=== PATIENT | female | born 1950 | race Caucasian/White ===

== ENCOUNTER 2019-10-05 10:56 | Emergency (ER) | payer MEDICARE ==
[~2019-10-05] VITALS: Ht 165.1 cm; Wt 88.5 kg
[~2019-10-05 10:56] MED LIST: AMLO5 PO; ASPI81CH PO; ATOR40TA PO; CLOP75 PO; DIPATR PO; INSULANPEN SC; METF500 PO; PROM25 PO; SIMV10 PO; ZESTORETIC 20-121 EA PO
[2019-10-05] MEDS ORDERED: IBUP600 PO (12:15)
[2019-10-05] MEDS ORDERED: ATORVASTATIN (12:17)
[2019-10-05] MEDS ORDERED: PLAVIX75 MG PO (12:17)
[2019-10-05] MEDS ORDERED: METFORMIN HCL500 M2 (12:17)
[2019-10-05] MEDS ORDERED: AMLODIPINE BESYL5 MG PO (12:17)
[2019-10-05] MEDS ORDERED: LATA.005SO (12:17)
== END 2019-10-05 12:28 | disposition home or self-care (01) ==
LOC: ER 10:56
DX: M70.71 Other bursitis of hip, right hip (principal); E11.9 Type 2 diabetes mellitus without complications; I10 Essential (primary) hypertension; E78.5 Hyperlipidemia, unspecified; E78.00 Pure hypercholesterolemia, unspecified
CPT/HCPCS: 96372; 99283-25; J1885

== ENCOUNTER 2020-11-04 03:00 | Observation (INO) | payer OTHER ==
[~2020-11-04] VITALS: Ht 165.1 cm; Wt 97.6 kg
[~2020-11-04 03:00] MED LIST changes: +AMLODIPINE BESYL5 MG PO; +ATORVASTATIN CA40 MG PO; +IBUP600 PO; +LATA.005SO BOTHEYES; +METFORMIN HCL500 M2; +PLAVIX75 MG PO
[2020-11-04 03:15] LABS: BASOPHILS ABSOLUTE AUTO 0.06 K/mm3 (0.00-0.23); BASOPHILS PERCENT AUTO 1 % (0-2); EOSINOPHILS ABSOLUTE AUTO 0.22 K/mm3 (0.00-0.68); EOSINOPHILS PERCENT AUTO 2 % (0-6); Hematocrit 40.3 % (33.0-51.0); Hemoglobin 12.9 g/dL (11.5-16.0); IMMATURE GRAN ABSOLUTE AUTO 0.06 K/mm3 (0.00-0.10); IMMATURE GRAN PERCENT AUTO 1 % (0-1); LYMPHOCYTES ABSOLUTE AUTO 1.82 K/mm3 (0.84-5.20); LYMPHOCYTES PERCENT AUTO 18 % (21-46); MONOCYTES ABSOLUTE AUTO 1.02 K/mm3 (0.16-1.47); MONOCYTES PERCENT AUTO 10 % (4-13); Mean Corpuscular HGB 30.4 pg (26.0-34.0); Mean Corpuscular Volume 95 fL (80-100); Mean Platelet Volume 10.1 fL (9.1-12.4); NEUTROPHILS ABSOLUTE AUTO 7.08 K/mm3 (1.96-9.15); NEUTROPHILS PERCENT AUTO 69 % (41-73); Platelet Count 242 K/mm3 (150-400); RDW Coefficient Variation 13.6 % (11.7-14.2); Red Blood Cell Count 4.25 M/mm3 (3.80-5.20); White Blood Cell Count 10.26 K/mm3 (4.00-11.30)
[2020-11-04 03:34] LABS: Troponin I <0.015 ng/mL (0.000-0.040)
[2020-11-04 03:54] LABS: Alanine Aminotransfer (ALT/SGP 22 U/L (12-78); Albumin, Blood 3.3 g/dL (3.4-5.0); Albumin/Globulin Ratio 0.9 (0.8-1.8); Alk Phos 95 U/L (50-136); Anion Gap 4 mmol/L (6-16); Aspartate Aminotrans (AST/SGOT 16 U/L (12-37); Bilirubin, Total 0.8 mg/dL (0.1-1.0); Blood Urea Nitrogen 20 mg/dL (8-24); Bun/Creatinine Ratio 22.9 (12.0-20.0); CO2, Blood 32 mmol/L (21-32); Calcium, Blood 9.1 mg/dL (8.5-10.1); Chloride, Blood 106 mmol/L (98-108); Creatinine, Blood 0.87 mg/dL (0.40-1.00); Globulin, Blood 3.5 g/dL (2.2-4.0); Glomerular Filtration Rate >60 (60-); Glucose, Blood 45 mg/dL (70-99); Potassium, Blood 3.7 mmol/L (3.5-5.5); Sodium, Blood 142 mmol/L (136-145); Total Protein, Blood 6.8 g/dL (6.4-8.2)
[2020-11-04 03:56] LABS: Source, Urine Clean Catch
[2020-11-04 03:59] LABS: Bilirubin, Urine Neg (Neg); Blood, Urine 1+ (Neg); Glucose Qualitative, Urine Neg (Neg); Ketones, Urine Neg (Neg); Leukocyte Esterase, Urine 2+ (Neg); Nitrite, Urine Neg (Neg); Protein, Urine 2+ (Neg); Urobilinogen, Urine NORM (Normal); pH, Urine 6.5 (5.0-8.0)
[2020-11-04 04:04] LABS: Appearance, Urine Clear (Clear); Color, Urine Yellow (P-Yellow)
[2020-11-04 04:11] LABS: Bacteria Rare /hpf; Squamous Epithelial Cells Few /hpf (Few)
[2020-11-04] MEDS ORDERED: SEMGLEE100 UNIT/1 (04:19)
[2020-11-04] MEDS ORDERED: LISINOPRIL-HCT1 EACH PO (04:20)
--- NOTE | 2020-11-04 07:30 | NUR ---
PT is awake and oriented x 4. BP was slightly elevated this morning and the pt reports that this is normal for her. She is able to answer questions appropriately. During assessment pt stated that she was going to be sick and did infact have emesis x 1. Her CBG was checked and was 81. Pt reports that she is usually in the 150's. Apple juice was given. She now reports feeling better. She is restng in bed with call light in reach.
--- NOTE | 2020-11-04 14:44 | NUR ---
Pt has been a/o x 3 today with no c/o pain. Her CBGs have been WNL and she has been asymptomatic of hypoglycemia. Pt reported to this nurse that she does not consistently check her blood sugars at home. diabetic education was completed by this nurse at the bedside. IV fluids have been infusing as ordered and IVs are patent. Pt does have some urinary urgency and has been a x 1 assit to the bedside commode. Pt worked with therapy this morning. Urine is malodorous and she has a UA culture pending. was notified of Pt current status and made aware of her transfer to Med floor. Report was called to receiving nurse on medical floor all personal belongings were packed. BIODIESEL TECHNOLOGY MANAGER to assist Pt to the floor. Pt stable upon transfer.
--- NOTE | 2020-11-04 17:14 | NUR ---
PT QUITE SHAKEY GETTING TO BSC. 1 ASST. CHECK CBG, OKAY AT 101. PT STATES FEELS FINE, JUST SOME WEAK
--- NOTE | 2020-11-04 18:25 | NUR ---
PT PLEASANT COOP SINCE TRANSFER TO FLOOR. NO C.O PAIN. IS UNSTABLE TO BSC. CONTINUES TO BE 1 ASST. VSS AND CGB WNL. PT TALKATIVE AND WATCHING [place] [employer] ON TV. CONTINUE TO MONITOR THROUGH SHIFT. NO NEW CONCERNS AT THIS TIME. BED IN LOW POSITION, CALL LITE IN REACH, BED [place] FOR SAFETY. IS IMPULSIVE
[2020-11-04] MEDS ORDERED: NOVOLIN N100 UNIT/2 SC (22:37)
[2020-11-04] MEDS ORDERED: BASAGLAR K100 UNIT/1 SC (22:39)
[2020-11-04] MEDS ORDERED: BRIMONIDINE TART5 M1 BOTHEYES (22:40)
--- NOTE | 2020-11-05 01:16 | NUR ---
BLOOD GLUCOSE CHECKS: LATE ENTRY FOR 11/04/202015 - BLOOD GLOCOSE WAS 148, VALUES HAVE NOT CROSSED OVER INTO PEAK-IT. MAKING LINE WORKER VISUALLY VERIFIED RESULT IN REVIEW MODE ON GLUCOMETER MACHINE.
--- NOTE | 2020-11-05 07:56 | NUR ---
SHIFT SUMMARY: PATIENT IS IMPULSIVE AND JUMPS UP WITHOUT CALLING FOR ASSIST. A&OX4, NO REPORTS OF PAIN OR DISCOMFORT. HS BLOOD GLUCOE WAS 148, D5 10% IS INFUING AT 50ML/HR. BED ALARM IS ON FOR SAFETY.
[2020-11-05 08:12] LABS: BASOPHILS ABSOLUTE AUTO 0.06 K/mm3 (0.00-0.23); BASOPHILS PERCENT AUTO 1 % (0-2); EOSINOPHILS ABSOLUTE AUTO 0.25 K/mm3 (0.00-0.68); EOSINOPHILS PERCENT AUTO 3 % (0-6); Hemoglobin 13.3 g/dL (11.5-16.0); IMMATURE GRAN ABSOLUTE AUTO 0.01 K/mm3 (0.00-0.10); IMMATURE GRAN PERCENT AUTO 0 % (0-1); LYMPHOCYTES ABSOLUTE AUTO 1.73 K/mm3 (0.84-5.20); LYMPHOCYTES PERCENT AUTO 23 % (21-46); MONOCYTES ABSOLUTE AUTO 1.01 K/mm3 (0.16-1.47); MONOCYTES PERCENT AUTO 14 % (4-13); Mean Corpuscular HGB 30.6 pg (26.0-34.0); Mean Corpuscular HGB Conc 33.3 g/dL (31.5-36.5); Mean Corpuscular Volume 92 fL (80-100); Mean Platelet Volume 10.2 fL (9.1-12.4); NEUTROPHILS PERCENT AUTO 59 % (41-73); Platelet Count 191 K/mm3 (150-400); RDW Coefficient Variation 13.5 % (11.7-14.2); RDW Standard Deviation 45.9 fL (35.1-46.3); Red Blood Cell Count 4.35 M/mm3 (3.80-5.20); White Blood Cell Count 7.46 K/mm3 (4.00-11.30)
[2020-11-05 08:39] LABS: Albumin/Globulin Ratio 0.9 (0.8-1.8); Bilirubin, Total 1.6 mg/dL (0.1-1.0); Bun/Creatinine Ratio 16.3 (12.0-20.0); Calcium, Blood 8.9 mg/dL (8.5-10.1); Creatinine, Blood 0.98 mg/dL (0.40-1.00); Globulin, Blood 3.4 g/dL (2.2-4.0); Magnesium, Blood 1.6 mg/dL (1.6-2.4); Potassium, Blood 3.8 mmol/L (3.5-5.5); Thyroid Stimulating Hormone 3.97 uIU/mL (0.360-4.800); Total Protein, Blood 6.4 g/dL (6.4-8.2)
[2020-11-05] MEDS ORDERED: ACET325 PO (11:35)
[2020-11-05] MEDS ORDERED: ONDA4ODT MM (11:36)
--- NOTE | 2020-11-05 14:54 | NUR ---
PT WAS DISCHARGED ALERT AND ORIENTED, WITH BELONGINGS AND FAMILY AT SIDE. PT WAS EDUCATED ON SS TO LOOK OUT FOR WITH LOW BLOOD SUGARS, NEW MEDICATIONS AND FOLLLOW UP APPOINTMENTS NEEDED. PT WAS ABLE TO TEACH BACK. IV LINES WERE DC'S AND WNL.
== END 2020-11-05 14:24 | disposition home or self-care (01) ==
LOC: ER 03:00 → PCU 03:01 → MEDS 14:57 → ENPENDDIS 11-05 10:53 → MEDS 11-05 14:24
PROVIDERS: Emergency Medicine; Family Medicine; ADMIT Family Medicine
DX: E11.649 Type 2 diabetes mellitus with hypoglycemia without coma (principal); R56.9 Unspecified convulsions; R82.90 Unspecified abnormal findings in urine; E87.2 Acidosis; I10 Essential (primary) hypertension; E78.5 Hyperlipidemia, unspecified; Z79.4 Long term (current) use of insulin; Z79.899 Other long term (current) drug therapy
CPT/HCPCS: 36415; 70450; 71045; 72125; 80053; 81001; 82947; 83605; 83735; 84100; 84443; 84484; 85025; 87086; 93005; 93010; 96372; 96374; 96376; 97110; 97116; 97162; 97165; 97530; 97535; 99285-25; A9270; G0378; J1650; J2405

== ENCOUNTER → 2021-04-16 | Outpatient (CLI) | payer OTHER ==
[~2021-04-16] MED LIST changes: +ACET325 PO; +BASAGLAR K100 UNIT/1 SC; +BRIMONIDINE TART5 M1 BOTHEYES; +LISINOPRIL-HCT1 EACH PO; +NOVOLIN N100 UNIT/2 SC; +ONDA4ODT MM; +SEMGLEE100 UNIT/1
[2021-04-16 14:28] LABS: Bilirubin, Total 0.7 mg/dL (0.1-1.0); Bun/Creatinine Ratio 14.5 (12.0-20.0); Creatinine, Blood 1.1 mg/dL (0.40-1.00)
== END | disposition home or self-care (01) ==
LOC: LAB SHORT 10:40
PROVIDERS: Family Medicine
DX: E11.9 Type 2 diabetes mellitus without complications (principal)
CPT/HCPCS: 80053; 83036

== ENCOUNTER 2021-06-12 06:50 | Day surgery (SDC) | payer OTHER ==
[~2021-06-12] VITALS: Ht 162.6 cm; Wt 102.7 kg
--- NOTE | 2021-06-12 07:20 | NUR ---
History, Chart, Medications and Allergies reviewed before start of procedure. Patient States Post-Procedure ride home has been arranged. Patient states colon prep results clear.
--- NOTE | 2021-06-12 07:56 | NUR ---
06/12/21 0756 Roxy Deluca HISTORY,CHART, MEDICATIONS AND ALLERGIES REVIEWED BEFORE START OF PROCEDURE. PATIENT CONFIRMS NPO STATUS AND AGREES WITH SCHEDULED PROCEDURE. 3-LEAD EKG REVIEWED WITH PHYSICIAN PRIOR TO START OF PROCEDURE. MONITOR INTACT WITH CONTINUOUS PULSE OXIMETRY AND INTERMITTENT BP. SUPPLEMENTAL O2 TO BE TITRATED THROUGHOUT PROCEDURE TO MAINTAIN O2 SATURATION ABOVE 90%. PATIENT DETERMINED TO BE ASA APPROPRIATE FOR MODERATE SEDATION PRIOR TO START OF PROCEDURE BY .
--- NOTE | 2021-06-12 08:57 | NUR ---
Discharge instructions reviewed with patient. Patient verbalizes understanding. Copy given to patient to take home. Patient States Post-Procedure ride home has been arranged. Discharged via wheelchair to private car for ride home.
== END 2021-06-12 23:10 | disposition home or self-care (01) ==
LOC: ORSCMMR 06:50 → ORD 08:00 → ORSCMMR 23:10
PROVIDERS: Internal Medicine Gastroenterology
PROC: 0DJD8ZZ Inspection of Lower Intestinal Tract, Via Natural or Artificial Opening Endoscopic (ICD-10-PCS; principal; 2021-06-12 08:00)
DX: Z12.11 Encounter for screening for malignant neoplasm of colon (principal); Z86.010 Personal history of colon polyps; K57.30 Diverticulosis of large intestine without perforation or abscess without bleeding; E11.9 Type 2 diabetes mellitus without complications; I10 Essential (primary) hypertension; E78.00 Pure hypercholesterolemia, unspecified; Z79.4 Long term (current) use of insulin; Z79.82 Long term (current) use of aspirin; Z79.899 Other long term (current) drug therapy
CPT/HCPCS: 82947; J2250; J3010; J7120

== ENCOUNTER → 2021-07-29 | Outpatient (CLI) | payer OTHER | END | disposition home or self-care (01) | LOC: LAB SHORT 19:23 | DX: N39.0 Urinary tract infection, site not specified (principal) | CPT/HCPCS: 87086 ==

== ENCOUNTER → 2021-10-14 | Outpatient (CLI) | payer OTHER ==
[2021-10-14 13:44] LABS: Hemoglobin 14.4 g/dL (11.5-16.0); Mean Corpuscular HGB 30.7 pg (26.0-34.0); Mean Corpuscular Volume 96 fL (80-100); Mean Platelet Volume 10.4 fL (9.1-12.4); Platelet Count 237 K/mm3 (150-400); RDW Coefficient Variation 14.2 % (11.7-14.2); RDW Standard Deviation 49.9 fL (35.1-46.3); Red Blood Cell Count 4.69 M/mm3 (3.80-5.20); White Blood Cell Count 7.71 K/mm3 (4.00-11.30)
[2021-10-14 15:12] LABS: Albumin, Blood 3.9 g/dL (3.4-5.0); Albumin/Globulin Ratio 1.1 (0.8-1.8); Bun/Creatinine Ratio 29.7 (12.0-20.0); Calcium, Blood 9.8 mg/dL (8.5-10.1); Creatinine, Blood 1.18 mg/dL (0.40-1.00); Globulin, Blood 3.6 g/dL (2.2-4.0); Total Protein, Blood 7.5 g/dL (6.4-8.2)
== END ==
LOC: LAB 10:20 → LAB SHORT 10:20
PROVIDERS: Family Medicine
DX: E11.9 Type 2 diabetes mellitus without complications (principal); I11.0 Hypertensive heart disease with heart failure; I50.9 Heart failure, unspecified; Z79.4 Long term (current) use of insulin
CPT/HCPCS: 80053; 83036; 83880; 85027

== ENCOUNTER → 2021-11-27 | Outpatient (CLI) | payer OTHER | END | disposition home or self-care (01) | LOC: LAB SHORT 10:40 → LAB 10:40 | DX: N39.0 Urinary tract infection, site not specified (principal) | CPT/HCPCS: 87086; 87147 ==

== ENCOUNTER → 2021-12-10 | Outpatient (CLI) | payer OTHER | END | disposition home or self-care (01) | LOC: LAB 12:39 → LAB SHORT 12:39 | DX: N39.0 Urinary tract infection, site not specified (principal) | CPT/HCPCS: 87086 ==

== ENCOUNTER → 2022-01-14 | Outpatient (CLI) | payer OTHER ==
[2022-01-14 12:10] LABS: BASOPHILS ABSOLUTE AUTO 0.05 K/mm3 (0.00-0.23); BASOPHILS PERCENT AUTO 1 % (0-2); EOSINOPHILS ABSOLUTE AUTO 0.11 K/mm3 (0.00-0.68); EOSINOPHILS PERCENT AUTO 2 % (0-6); Hematocrit 44.5 % (33.0-51.0); Hemoglobin 14.2 g/dL (11.5-16.0); IMMATURE GRAN ABSOLUTE AUTO 0.01 K/mm3 (0.00-0.10); IMMATURE GRAN PERCENT AUTO 0 % (0-1); LYMPHOCYTES ABSOLUTE AUTO 1.48 K/mm3 (0.84-5.20); LYMPHOCYTES PERCENT AUTO 23 % (21-46); MONOCYTES ABSOLUTE AUTO 0.74 K/mm3 (0.16-1.47); MONOCYTES PERCENT AUTO 11 % (4-13); Mean Corpuscular HGB 30.7 pg (26.0-34.0); Mean Corpuscular HGB Conc 31.9 g/dL (31.5-36.5); Mean Corpuscular Volume 96 fL (80-100); Mean Platelet Volume 10.4 fL (9.1-12.4); NEUTROPHILS ABSOLUTE AUTO 4.11 K/mm3 (1.96-9.15); NEUTROPHILS PERCENT AUTO 63 % (41-73); Platelet Count 205 K/mm3 (150-400); RDW Coefficient Variation 14.4 % (11.7-14.2); RDW Standard Deviation 51.2 fL (35.1-46.3); Red Blood Cell Count 4.62 M/mm3 (3.80-5.20)
[2022-01-14 12:34] LABS: Alanine Aminotransfer (ALT/SGP 21 U/L (12-78); Alk Phos 101 U/L (50-136); Anion Gap 9 mmol/L (6-16); Aspartate Aminotrans (AST/SGOT 32 U/L (12-37); Blood Urea Nitrogen 28 mg/dL (8-24); Bun/Creatinine Ratio 26.2 (12.0-20.0); CHOL/HDL RATIO 1.9; CO2, Blood 26 mmol/L (21-32); Calcium, Blood 9.9 mg/dL (8.5-10.1); Chloride, Blood 105 mmol/L (98-108); Cholesterol 157 mg/dL (50-200); Creatinine, Blood 1.07 mg/dL (0.40-1.00); Globulin, Blood 4.2 g/dL (2.2-4.0); Glomerular Filtration Rate 55 (60-); HDL Cholesterol 83 mg/dL (>39); LDL/HDL RATIO 0.8; Low Density Lipoprotein Chol 64 mg/dL (0-110); Potassium, Blood 4.4 mmol/L (3.5-5.5); Sodium, Blood 140 mmol/L (136-145); Total Protein, Blood 8.2 g/dL (6.4-8.2); Triglycerides 49 mg/dL (30-160); Very Low Density Lipoprot Chol 9 mg/dL (6-32)
[2022-01-14 13:55] LABS: Glucose, Blood 44 mg/dL (70-99)
== END | disposition home or self-care (01) ==
LOC: LAB 10:45 → LAB SHORT 10:45
PROVIDERS: Family Medicine
DX: E11.9 Type 2 diabetes mellitus without complications (principal); E78.2 Mixed hyperlipidemia; I50.9 Heart failure, unspecified
CPT/HCPCS: 80053; 80061; 83036; 83880; 85025

== ENCOUNTER → 2022-06-30 | Outpatient (CLI) | payer OTHER ==
[~2022-06-30] MED LIST changes: +FUROSEMIDE40 MG PO; +HUMULIN N100 UNIT/6 SC; +K-Dur10 MEQ PO
[2022-06-30 14:18] LABS: Albumin, Blood 3.8 g/dL (3.4-5.0); Bilirubin, Total 1.2 mg/dL (0.1-1.0); Bun/Creatinine Ratio 14.6 (12.0-20.0); Calcium, Blood 10.5 mg/dL (8.5-10.1); Creatinine, Blood 1.03 mg/dL (0.40-1.00); Globulin, Blood 3.8 g/dL (2.2-4.0); Potassium, Blood 3.6 mmol/L (3.5-5.5); Total Protein, Blood 7.6 g/dL (6.4-8.2)
== END | disposition home or self-care (01) ==
LOC: LAB 10:20 → LAB SHORT 10:20
PROVIDERS: Family Medicine
DX: E11.9 Type 2 diabetes mellitus without complications (principal)
CPT/HCPCS: 80053; 83036

== ENCOUNTER 2022-07-02 08:20 | Observation (INO) | payer OTHER ==
[~2022-07-02] VITALS: Ht 162.6 cm; Wt 89.5 kg
[~2022-07-02 08:20] MED LIST changes: -FUROSEMIDE40 MG PO; -HUMULIN N100 UNIT/6 SC; -K-Dur10 MEQ PO
[2022-07-02 08:43] LABS: BASOPHILS ABSOLUTE AUTO 0.04 K/mm3 (0.00-0.23); BASOPHILS PERCENT AUTO 0 % (0-2); EOSINOPHILS PERCENT AUTO 0 % (0-6); Hematocrit 44.6 % (33.0-51.0); Hemoglobin 15.6 g/dL (11.5-16.0); IMMATURE GRAN ABSOLUTE AUTO 0.04 K/mm3 (0.00-0.10); IMMATURE GRAN PERCENT AUTO 0 % (0-1); LYMPHOCYTES ABSOLUTE AUTO 0.69 K/mm3 (0.84-5.20); LYMPHOCYTES PERCENT AUTO 6 % (21-46); MONOCYTES ABSOLUTE AUTO 0.72 K/mm3 (0.16-1.47); MONOCYTES PERCENT AUTO 6 % (4-13); Mean Corpuscular HGB 31.8 pg (26.0-34.0); Mean Corpuscular Volume 91 fL (80-100); Mean Platelet Volume 11.5 fL (9.1-12.4); NEUTROPHILS ABSOLUTE AUTO 10.46 K/mm3 (1.96-9.15); NEUTROPHILS PERCENT AUTO 88 % (41-73); Platelet Count 191 K/mm3 (150-400); RDW Coefficient Variation 12.4 % (11.7-14.2); RDW Standard Deviation 41.1 fL (35.1-46.3); Red Blood Cell Count 4.91 M/mm3 (3.80-5.20); White Blood Cell Count 11.95 K/mm3 (4.00-11.30)
[2022-07-02 09:01] LABS: Albumin, Blood 3.6 g/dL (3.4-5.0); Bilirubin, Total 1.1 mg/dL (0.1-1.0); Bun/Creatinine Ratio 20.4 (12.0-20.0); Calcium, Blood 9.5 mg/dL (8.5-10.1); Creatinine, Blood 1.08 mg/dL (0.40-1.00); Globulin, Blood 3.5 g/dL (2.2-4.0); Potassium, Blood 3.8 mmol/L (3.5-5.5); Total Protein, Blood 7.1 g/dL (6.4-8.2)
[2022-07-02 09:12] LABS: Base Excess Venous 8.9 mmol/L; Bicarbonate Venous 29.9 mmol/L (24.0-30.0); PCO2 Venous 53.8 mmHg (38-42)
[2022-07-02 09:35] LABS: Source, Urine Clean Catch
[2022-07-02 09:39] LABS: Appearance, Urine Clear (Clear); Bilirubin, Urine Neg (Neg); Blood, Urine 3+ (Neg); Color, Urine Yellow (P-Yellow); Glucose Qualitative, Urine 4+ (Neg); Ketones, Urine Neg (Neg); Leukocyte Esterase, Urine Neg (Neg); Nitrite, Urine Neg (Neg); Protein, Urine 2+ (Neg); Specific Gravity, Urine 1.015 (1.003-1.022); Urobilinogen, Urine NORM (Normal)
[2022-07-02 09:49] LABS: White Blood Cells, Urine 0-2 /hpf (0-5)
[2022-07-02 09:50] LABS: Bacteria Rare /hpf; Squamous Epithelial Cells Rare /hpf (Few)
[2022-07-02 12:42] LABS: U Amphetamine Screen Not Detected; U Barbituate Screen Not Detected; U Benzodiazapine Screen Not Detected; U Buprenorphine Screen Not Detected; U Cannabinoids Screen Not Detected; U Cocaine Screen Not Detected; U Methadone Screen Not Detected; U Methamphetamine Screen Not Detected; U Opiates Screen Not Detected; U Oxycodone Screen Not Detected; U Phencyclidine Screen Not Detected; U Propoxyphene Screen Not Detected
--- NOTE | 2022-07-02 17:07 | NUR ---
ADMISSION NOTE: REPORT RECEIVED FROM TATYANA WATSON. PT ARRIVED TO ROOM 333 AT 1655 VIA GURNEY. PT IS AWAKE BUT MINIMALLY VERBALLY RESPONSIVE. ANSWERS HER NAME BUT DOES NOT RESPOND TO OTHER YES/NO QUESTIONS. SHE IS IN NO APPARENT RESPIRATORY DISTRESS. ON O2 AT 2 LPM VIA NC. PAINAD IS 0/10. NO OBVIOUS FACIAL DROOP, OR SLURRING OF WORDS. PT SKIN ASSESSMENT COMPLETED WITH ROLF WATSON AND NO WOUNDS, RASHES OR OTHER SKIN ISSUES FOUND. PT ORIENTED TO ROOM. CALL LIGHT IN REACH AND BED ALARM AND 3 RAILS SET. BED IN LOW POSITION. PT SPOUSE IS NOT PRESENT. UNABLE TO COMPLETE MEDICATION RECONCILIATION AT THIS TIME.
[2022-07-02] MEDS ORDERED: HUMULIN N100 UNIT/6 SC (22:39)
[2022-07-02] MEDS ORDERED: K-Dur10 MEQ PO (22:40)
[2022-07-02] MEDS ORDERED: FUROSEMIDE40 MG PO (22:40)
--- NOTE | 2022-07-03 05:05 | NUR ---
YARD WAREHOUSE WORKER SUMMARY PT HAS REMAINED LETHARGIC/SLEEPING T/O THE SHIFT. SHE WILL AWAKE TO ANSWER QUESTIONS. PT ABLE TO STATE NAME AND WHERE SHE IS AT. PT CAN NOT ANSWER MORE COMPLEX QUESTIONS LIKE TELLING ME WHY SHE IS HERE. PT ABLE TO RESPOND TO COMMANDS FOR NEURO CHECKS; STRENGTH EQUAL BILATERALLY IN HANDS/LEGS, BUT WEAK. CONT W/Q4 NEURO CHECKS AND Q6 BLOOD SUGAR T/O THE SHIFT. PT REMAINS NPO AWAITING SWALLOW EVAL. PT HAS NOT REQUESTED FOOD/DRINK. PT HAS PULLED BLANKETS/GOWN OFF BODY MULTIPLE TIMES DURING SHIFT. CALL LIGHT IN REACH. BED LOCKED/ALARM SET.
[2022-07-03 05:25] LABS: BASOPHILS ABSOLUTE AUTO 0.04 K/mm3 (0.00-0.23); BASOPHILS PERCENT AUTO 1 % (0-2); EOSINOPHILS ABSOLUTE AUTO 0.09 K/mm3 (0.00-0.68); EOSINOPHILS PERCENT AUTO 1 % (0-6); Hematocrit 41.1 % (33.0-51.0); Hemoglobin 14.1 g/dL (11.5-16.0); IMMATURE GRAN ABSOLUTE AUTO 0.01 K/mm3 (0.00-0.10); IMMATURE GRAN PERCENT AUTO 0 % (0-1); LYMPHOCYTES ABSOLUTE AUTO 1.98 K/mm3 (0.84-5.20); LYMPHOCYTES PERCENT AUTO 24 % (21-46); MONOCYTES ABSOLUTE AUTO 1.02 K/mm3 (0.16-1.47); MONOCYTES PERCENT AUTO 12 % (4-13); Mean Corpuscular HGB 30.9 pg (26.0-34.0); Mean Corpuscular HGB Conc 34.3 g/dL (31.5-36.5); Mean Corpuscular Volume 90 fL (80-100); Mean Platelet Volume 11.4 fL (9.1-12.4); NEUTROPHILS ABSOLUTE AUTO 5.09 K/mm3 (1.96-9.15); NEUTROPHILS PERCENT AUTO 62 % (41-73); Platelet Count 169 K/mm3 (150-400); RDW Coefficient Variation 12.7 % (11.7-14.2); RDW Standard Deviation 41.9 fL (35.1-46.3); Red Blood Cell Count 4.56 M/mm3 (3.80-5.20); White Blood Cell Count 8.23 K/mm3 (4.00-11.30)
[2022-07-03 05:51] LABS: Albumin, Blood 2.8 g/dL (3.4-5.0); Albumin/Globulin Ratio 0.9 (0.8-1.8); Bilirubin, Total 1.8 mg/dL (0.1-1.0); Bun/Creatinine Ratio 17.3 (12.0-20.0); Calcium, Blood 9.2 mg/dL (8.5-10.1); Creatinine, Blood 1.04 mg/dL (0.40-1.00); Globulin, Blood 3.1 g/dL (2.2-4.0); Magnesium, Blood 1.7 mg/dL (1.6-2.4); Potassium, Blood 3.2 mmol/L (3.5-5.5); Total Protein, Blood 5.9 g/dL (6.4-8.2)
--- NOTE | 2022-07-03 07:53 | NUR ---
TELESALES AGENT SUMMARY PT RETURNED FROM PACU APROX 1930; PT A/OX4. REPORT F/PACU VSS. WAS WITH PT. CONT W/BP CHECKS P/PROTOCOL. PT C/O MODERATE PAIN F/3-5; MED W/NORCO 5MG Q4 HOURS. BP GREW SOFTER T/O THE NIGHT; DROPPING TO 87/62; MAP 70. CONTACT DR--NEW ORDER FOR 500ML BOLUS; PT TOLERATED WELL. AFTER BOLUS BP 103/61. ABDOMEN TENDER; DRESSINGS CDI. PT ABLE TO MAKE NEEDS KNOWN. CALL LIGHT IN REACH.
--- NOTE | 2022-07-03 18:39 | NUR ---
SHIFT SUMMARY PATIENT DENIES PAIN AND SHORTNESS OF BREATH. PATIENT MEDICATED X1 FOR NAUSEA, PATIENT VOMITTED THIS AFTERNOON. PATIENT WORKED WITH PT AND OT. PATIENT IS A SBA WITH A FWW. PATIENT TITRATED TO ROOM AIR, SATURATING AT 95%. BEDSIDE SWALLOW EVAL DONE THIS MORNING BY THIS RN, PATIENT TOLERATED ALL TEXTURES WITHOUT SIGNS OF ASPIRATION, I.E., NO COUGHING OR THROAT CLEARING. PATIENT STARTED ON SOFT DIET DUE TO NOT HAVING DENTURES. MANZO PULLED THIS MORNING WITHOUT DIFFICULTY. PATIENT TOELRATED WELL. PATIENT URINTING WELL, BLADDER SCAN POST VOID 130MLS. PATIENT IS EATING AND DRINKING WELL. PATIENT VISITED THIS MORNING. PATIENT IS A&O X3, PATIENT HAS TROUBLE WITH COMPLEX THINKING. PATIENT IS VERY PLEASANT AND COOPERATIVE WITH CARE. PATIENT COMPLETED MRI TODAY, SEE RESULTS.
--- NOTE | 2022-07-04 04:57 | NUR ---
CONCRETE PUMP OPERATOR HELPER SUMMARY NO ACUTE CHANGES. PT REMAINS PLEASANT AND COOPERATIVE WITH CARE. DENIES ANY PAIN OR NAUSEA THIS SHIFT. PT CALLING APPROPRIATELY F/NEEDS. PT THOUGHT PROCESS STILL SEEMS A LITTLE CONFUSED. CALL LIGHT IN REACH. WILL CONT T/MONITOR.
[2022-07-04 05:54] LABS: BASOPHILS ABSOLUTE AUTO 0.06 K/mm3 (0.00-0.23); BASOPHILS PERCENT AUTO 1 % (0-2); EOSINOPHILS ABSOLUTE AUTO 0.25 K/mm3 (0.00-0.68); EOSINOPHILS PERCENT AUTO 3 % (0-6); Hematocrit 43.6 % (33.0-51.0); Hemoglobin 14.6 g/dL (11.5-16.0); IMMATURE GRAN ABSOLUTE AUTO 0.01 K/mm3 (0.00-0.10); IMMATURE GRAN PERCENT AUTO 0 % (0-1); LYMPHOCYTES ABSOLUTE AUTO 2.42 K/mm3 (0.84-5.20); LYMPHOCYTES PERCENT AUTO 30 % (21-46); MONOCYTES PERCENT AUTO 11 % (4-13); Mean Corpuscular HGB 30.6 pg (26.0-34.0); Mean Corpuscular HGB Conc 33.5 g/dL (31.5-36.5); Mean Corpuscular Volume 91 fL (80-100); Mean Platelet Volume 11.1 fL (9.1-12.4); NEUTROPHILS ABSOLUTE AUTO 4.42 K/mm3 (1.96-9.15); NEUTROPHILS PERCENT AUTO 55 % (41-73); Platelet Count 167 K/mm3 (150-400); RDW Coefficient Variation 12.6 % (11.7-14.2); RDW Standard Deviation 42.4 fL (35.1-46.3); Red Blood Cell Count 4.77 M/mm3 (3.80-5.20); White Blood Cell Count 8.06 K/mm3 (4.00-11.30)
[2022-07-04 06:37] LABS: Bun/Creatinine Ratio 18.2 (12.0-20.0); Calcium, Blood 9.2 mg/dL (8.5-10.1); Creatinine, Blood 1.1 mg/dL (0.40-1.00); Potassium, Blood 3.6 mmol/L (3.5-5.5)
--- NOTE | 2022-07-04 13:13 | NUR ---
DISCHARGE: PT DISCHARGED VIA HOSPITAL WHEELCHAIR WITH AND FRIEND. IV WAS D/C'D AND WAS WNL. WENT OVER PT INSTRUCTIONS INCLUDING HER MEDICATIONS, FOLLOW-UP WITH PCP, EDUCATION, AND SYMPTOMS TO COME BACK TO ER. PT AND STATED THEY UNDERSTOOD ALL INSTRUCTIONS. THANKFUL FOR CARE PROVIDED.
== END 2022-07-04 13:04 | disposition home or self-care (01) ==
LOC: ER 08:20 → MEDS 15:52
PROVIDERS: Physician Assistant; ADMIT Student in an Organized Health Care Education/Training Program
DX: R41.82 Altered mental status, unspecified (principal); Z86.73 Personal history of transient ischemic attack (TIA), and cerebral infarction without residual deficits; Z79.4 Long term (current) use of insulin; Z79.82 Long term (current) use of aspirin; F03.90 Unspecified dementia, unspecified severity, without behavioral disturbance, psychotic disturbance, mood disturbance, and anxiety; E11.22 Type 2 diabetes mellitus with diabetic chronic kidney disease; I12.9 Hypertensive chronic kidney disease with stage 1 through stage 4 chronic kidney disease, or unspecified chronic kidney disease
CPT/HCPCS: 36415; 51702; 70450; 70551; 71045; 80048; 80053; 81001; 82803; 82947; 83735; 85025; 92610; 93005; 93010; 93306; 93880; 97110; 97116; 97161; 97165; 97530; 97535; A9270; G0480; J2250; J2310; J2405; J2765; J7030; J7120

== ENCOUNTER → 2023-01-12 | Outpatient (CLI) | payer OTHER ==
[~2023-01-12] MED LIST changes: +FUROSEMIDE40 MG PO; +HUMULIN N100 UNIT/6 SC; +K-Dur10 MEQ PO
== END | disposition home or self-care (01) ==
LOC: LAB 18:51 → LAB SHORT 18:51
DX: N39.0 Urinary tract infection, site not specified (principal)
CPT/HCPCS: 87086

== ENCOUNTER → 2023-03-10 | Outpatient (CLI) | payer OTHER ==
[2023-03-10 14:39] LABS: BASOPHILS ABSOLUTE AUTO 0.05 K/mm3 (0.00-0.23); BASOPHILS PERCENT AUTO 1 % (0-2); EOSINOPHILS ABSOLUTE AUTO 0.17 K/mm3 (0.00-0.68); EOSINOPHILS PERCENT AUTO 2 % (0-6); Hematocrit 46.1 % (33.0-51.0); Hemoglobin 15.5 g/dL (11.5-16.0); IMMATURE GRAN ABSOLUTE AUTO 0.01 K/mm3 (0.00-0.10); IMMATURE GRAN PERCENT AUTO 0 % (0-1); LYMPHOCYTES ABSOLUTE AUTO 1.52 K/mm3 (0.84-5.20); LYMPHOCYTES PERCENT AUTO 21 % (21-46); MONOCYTES ABSOLUTE AUTO 0.65 K/mm3 (0.16-1.47); MONOCYTES PERCENT AUTO 9 % (4-13); Mean Corpuscular HGB 31.1 pg (26.0-34.0); Mean Corpuscular HGB Conc 33.6 g/dL (31.5-36.5); Mean Corpuscular Volume 92 fL (80-100); Mean Platelet Volume 11.5 fL (9.1-12.4); NEUTROPHILS PERCENT AUTO 67 % (41-73); Platelet Count 190 K/mm3 (150-400); RDW Coefficient Variation 13.7 % (11.7-14.2); RDW Standard Deviation 46.6 fL (35.1-46.3); Red Blood Cell Count 4.99 M/mm3 (3.80-5.20)
[2023-03-10 14:53] LABS: Alanine Aminotransfer (ALT/SGP 23 U/L (12-78); Albumin, Blood 4.4 g/dL (3.4-5.0); Albumin/Globulin Ratio 1.3 (0.8-1.8); Alk Phos 134 U/L (50-136); Anion Gap 5 mmol/L (6-16); Aspartate Aminotrans (AST/SGOT 18 U/L (12-37); Bilirubin, Total 1.5 mg/dL (0.1-1.0); Blood Urea Nitrogen 34 mg/dL (8-24); Bun/Creatinine Ratio 30.6 (12.0-20.0); CHOL/HDL RATIO 1.8; CO2, Blood 32 mmol/L (21-32); Calcium, Blood 10.1 mg/dL (8.5-10.1); Chloride, Blood 96 mmol/L (98-108); Cholesterol 159 mg/dL (50-200); Creatinine, Blood 1.11 mg/dL (0.40-1.00); Globulin, Blood 3.5 g/dL (2.2-4.0); Glomerular Filtration Rate 52 (60-); Glucose, Blood 457 mg/dL (70-99); HDL Cholesterol 89 mg/dL (>39); LDL/HDL RATIO 0.5; Low Density Lipoprotein Chol 49 mg/dL (0-110); Potassium, Blood 4.2 mmol/L (3.5-5.5); Sodium, Blood 133 mmol/L (136-145); Total Protein, Blood 7.9 g/dL (6.4-8.2); Triglycerides 107 mg/dL (30-160); Very Low Density Lipoprot Chol 21 mg/dL (6-32)
== END | disposition home or self-care (01) ==
LOC: LAB 10:00 → LAB SHORT 10:00
PROVIDERS: Family Medicine
DX: E78.2 Mixed hyperlipidemia (principal); I10 Essential (primary) hypertension; R73.09 Other abnormal glucose
CPT/HCPCS: 80053; 80061; 83036; 85025

== ENCOUNTER → 2023-03-12 | Outpatient (CLI) | payer OTHER | LOC: LAB SHORT 12:59 → LAB 12:59 | DX: N39.0 Urinary tract infection, site not specified (principal) | CPT/HCPCS: 87077; 87086; 87186 ==

== ENCOUNTER → 2023-08-14 | Outpatient (CLI) | payer OTHER ==
[2023-08-14 15:27] LABS: Source, Urine Clean Catch
[2023-08-14 19:32] LABS: Appearance, Urine Clear (Clear); Bilirubin, Urine Neg (Neg); Blood, Urine Neg (Neg); Color, Urine Yellow (P-Yellow); Glucose Qualitative, Urine 4+ (Neg); Ketones, Urine Neg (Neg); Leukocyte Esterase, Urine 2+ (Neg); Nitrite, Urine Neg (Neg); Protein, Urine 1+ (Neg); Specific Gravity, Urine 1.015 (1.003-1.022); Urobilinogen, Urine NORM (Normal)
[2023-08-14 19:44] LABS: White Blood Cells, Urine 25-50 /hpf (0-5)
[2023-08-14 19:45] LABS: Bacteria Many /hpf; Squamous Epithelial Cells Mod /hpf (Few); Transitional Epithelial Cells Rare /hpf (0-Rare); Yeast/Fungi Urine Many /hpf
== END | disposition home or self-care (01) ==
LOC: LAB 15:25 → LAB SHORT 15:25
PROVIDERS: Physician Assistant
DX: R30.0 Dysuria (principal)
CPT/HCPCS: 81001; 87086

== ENCOUNTER → 2023-09-04 | Outpatient (CLI) | payer OTHER ==
[2023-09-05 10:09] LABS: Candida species (DNA Probe) Negative (NEGATIVE); G. vaginalis (DNA Probe) Negative (NEGATIVE); T. vaginalis (DNA Probe) Negative (NEGATIVE)
== END | disposition home or self-care (01) ==
LOC: LAB 15:56 → LAB SHORT 15:56
PROVIDERS: Physician Assistant
DX: R30.0 Dysuria (principal)
CPT/HCPCS: 87086; 87480; 87510; 87660